=== PATIENT | female | born 2000 | race Caucasian/White ===

== ENCOUNTER 2024-04-09 17:16 | Emergency (ER) | payer OTHER, SELFPAY ==
[2024-04-09 17:24] VITALS: BP 138/94
[2024-04-09] MEDS: ADRENALIN 0.299999999999999989 MG SC (17:36)
[2024-04-09] MEDS: BENADRYL 12.5 MG IV (17:37)
[2024-04-09] MEDS: DECADRON 10 MG IV (17:37)
[2024-04-09] MEDS: PEPCID 20 MG IV (17:45)
[2024-04-09 17:56] VITALS: BP 110/54
[2024-04-09 17:57] VITALS: BMI 31.0
[2024-04-09 17:58] VITALS: BP 110/54
[2024-04-09 18:00] VITALS: BP 115/62
--- NOTE | 2024-04-09 18:09 | ED.GENMED ---
History of Present Illness
General
Chief Complaint: Allergic Reaction
Source: patient
Time Seen by Provider: 04/09/24 17:29
Travel History
Have you had any contact with someone who has COVID-19?: No
Do you have any symptoms of coronavirus? Fever > 100 degrees, chills, cough, shortness of breath, sore throat, loss of taste or smell, muscle aches, or headache?: No
History of Present Illness
History of Present Illness:
23-year-old female without significant past medical history presenting to the emergency department for concern of allergic reaction. Patient reports yesterday she used a facial cream on the left side of her face. This afternoon she started to have
itching and rash to the face with associated throat discomfort, difficulty swallowing. Also reports dyspnea. Denies vomiting. Denies abdominal pain. Denies systemic rash. Denies history of allergic reactions in the past. Denies any chest pain.
Denies any additional new exposures or medications. Denies additional acute medical complaints
Past History
Past History
ED Past Medical History: None
ED Past Surgical History: None
Social History
Tobacco: Non-smoker
Alcohol: None
Drug: None
Personal: Single
Living: with family
Employment: Not employed
Family History
Family History: Other (Noncontributory)
Phy Exam
Physical Exam
Physical Exam:
GENERAL: Alert , in no apparent distress
EYE: pupils equal and reactive
NECK: Supple, no significant adenopathy.
ENT: o/p clr, mmm. Mild hoarseness of voice. No trismus. No significant oropharyngeal swelling
CARDIAC: Regular rate and rhythm .
LUNGS: Clear breath sounds bilaterally, no acute respiratory distress, no wheezes/rales/rhonchi
ABDOMEN: Soft, without focal tenderness, no r/g, no cvat
NEUROLOGICAL: Alert and oriented, no focal neuro deficits
SKIN: Warm and dry, skin intact.
MUSCULOSKELETAL: No edema, well perfused.
PSYCH: Normal and appropriate interaction.
Course
Orders/Labs/Results
Orders:
Orders
04/09/24 17:32
Dexamethasone Sod Phosphate [Decadron] 10 mg IV NOW STA
Diphenhydramine [Benadryl] 12.5 mg IV NOW STA
EPINEPHrine PF [Adrenalin] 0.3 mg SC NOW STA
04/09/24 17:44
Famotidine [Pepcid] 20 mg .ROUTE .STK-MED ONE
04/09/24 22:00
Famotidine [Pepcid] 20 mg IV HS
Vital Signs
Initial and Last Documented VS:
Initial Vital Signs
Temp Pulse Resp BP Pulse Ox
97.9 F 78 21 138/94 100
04/09/24 17:24 04/09/24 17:24 04/09/24 17:24 04/09/24 17:24 04/09/24 17:24
Last Documented Vital Signs
Temp Pulse Resp BP Pulse Ox
97.9 F 83 15 115/62 99
04/09/24 17:24 04/09/24 18:30 04/09/24 18:30 04/09/24 18:00 04/09/24 18:30
MDM/Problems Addressed
MDM/Problems Addressed:
23-year-old female without significant past medical history presenting for concern of allergic reaction. Vital signs on arrival are normal.
On exam, patient is relatively well-appearing, does have some mild hoarseness to her voice, otherwise no respiratory distress. No stridorous respirations, no wheezing. Overall lower suspicion for anaphylaxis, absence of GI or systemic symptoms.
Patient however continues to discomfort with swallowing. Cannot appropriately visualize lower airway. For this reason, feel safer to give IM epinephrine. Patient in agreement with plan. Will also wire steward steroids/Pepcid/Benadryl and continue to
reassess to ensure no acute worsening or rebound reaction.
18:00 -Patient reassessed, reports symptom improvement, remains hemodynamically stable
20:40 -patient continues to improve. Appropriate observation time. Feel stable for discharge. Will prescribe EpiPen and steroids. Advise follow-up with PCP for allergy testing. Strict return precautions communicated and patient verbalized
understanding
*Critical Care Note
Total Time (30-74mins, 75-104mins- exclusive of procedures): 35 min
comment:
Critical care statement: A total of 35 minutes of critical care time was provided for this patient. Acute allergic reaction requiring epinephrine. This includes management of unstable vital signs, evaluation of the patient at bedside, reviewing
the patient's pertinent medical records, discussion with consultants, review of old EKGs and review of pertinent medical records. This time with separate from time utilized to perform the aforementioned documented procedures
ED Attending Note
-
Portions of this chart may have been created with voice recognition software.� Occasional wrong word or��sound alike� substitutions may have occurred due to the inherent limitations of voice recognition software.
Discharge Plan
Departure
Prescriptions:
No Action
ibuprofen 600 MG tablet
600 mg PO Q6HPRN PRN (Reason: pain) Qty: 20 0RF
Referrals:
Tenthoff,Tyesha Causey MD [Family Provider] -
Interventions
Interventions:
*Risk Screen - Suicide Last Done: 04/09/24 17:58
*General Assessment Last Done: 04/09/24 17:58
*Neglect/Abuse Screening Last Done: 04/09/24 17:58
ED- Cardiac Assessment Last Done: 04/09/24 17:59
ED- Pulmonary Assessment Last Done: 04/09/24 17:59
ED-Skin Assessment Last Done: 04/09/24 17:59
Discharge Date and Time
Print Language: KOREAN
[2024-04-09 19:00] VITALS: BP 112/61
--- NOTE | 2024-04-09 19:00 | EDRN ---
Report received, patient resting, monitoring patient for now
[2024-04-09 20:00] VITALS: BP 100/83
--- NOTE | 2024-04-09 20:30 | EDRN ---
Patient continues to feel okay, will be discharged, Doctor in to re-examine as well.
== END 2024-04-09 20:58 | disposition home or self-care (01) ==
LOC: EMR 17:16
PROVIDERS: EMERGENCY PHYSICIAN Student in an Organized Health Care Education/Training Program; FAMILY PHYSICIAN Family Medicine
DX: T78.40XA Allergy, unspecified, initial encounter (principal); R49.0 Dysphonia; R06.00 Dyspnea, unspecified; R21 Rash and other nonspecific skin eruption; L29.9 Pruritus, unspecified; R09.89 Other specified symptoms and signs involving the circulatory and respiratory systems
CPT/HCPCS: 99291; 96374; 96375 ×2; 96372